=== PATIENT | female | born 1945 | race Two or more races ===

== ENCOUNTER 2019-06-21 09:45 | Emergency (ER) | payer OTHER ==
[~2019-06-21] VITALS: Ht 157.5 cm; Wt 49.9 kg
== END 2019-06-21 16:13 | disposition home or self-care (01) ==
LOC: ER 09:45
DX: S43.085A Other dislocation of left shoulder joint, initial encounter (principal); X50.0XXA Overexertion from strenuous movement or load, initial encounter; Y93.89 Activity, other specified; Y92.098 Other place in other non-institutional residence as the place of occurrence of the external cause; Y99.8 Other external cause status

== ENCOUNTER 2021-08-23 10:00 | Outpatient (CLI) | payer OTHER | END 2021-08-23 10:15 | disposition home or self-care (01) | LOC: PPH VACUNA 10:00 | PROVIDERS: ATTEND Emergency Medicine Pediatric Emergency Medicine | DX: Z23 Encounter for immunization (principal) ==

== ENCOUNTER → 2021-09-28 07:09 | Outpatient (CLI) | payer OTHER ==
[~2021-09-28 07:09] MED LIST: COLACE100 MG PO; ULTRACET PO
== END | disposition home or self-care (01) ==
LOC: LAB 07:09
PROVIDERS: ATTEND Surgery
DX: K62.5 Hemorrhage of anus and rectum (principal); C21.1 Malignant neoplasm of anal canal; R59.0 Localized enlarged lymph nodes; K62.89 Other specified diseases of anus and rectum; K64.4 Residual hemorrhoidal skin tags

== ENCOUNTER 2021-10-04 06:00 | Day surgery (SDC) | payer OTHER ==
[2021-10-04] MEDS ORDERED: ULTRACET PO (09:28)
[2021-10-04] MEDS ORDERED: COLACE100 MG PO (09:28)
== END 2021-10-04 16:25 | disposition home or self-care (01) ==
LOC: CIR.AMB 06:00 → EDSTATUS 07:00 → CIR.AMB 08:00
PROVIDERS: ATTEND Surgery
DX: C21.1 Malignant neoplasm of anal canal (principal); Z20.822 Contact with and (suspected) exposure to COVID-19

== ENCOUNTER 2021-10-23 09:45 | Outpatient (CLI) | payer OTHER | END 2021-10-23 10:14 | disposition home or self-care (01) | LOC: TOM 09:45 | PROVIDERS: ATTEND Surgery | DX: C21.1 Malignant neoplasm of anal canal (principal); R59.0 Localized enlarged lymph nodes; K62.5 Hemorrhage of anus and rectum; K62.89 Other specified diseases of anus and rectum; K64.4 Residual hemorrhoidal skin tags ==

== ENCOUNTER 2021-10-25 06:54 | Outpatient (CLI) | payer OTHER ==
[2021-10-25] MEDS ORDERED: ULTRACET PO (13:11)
== END 2021-10-25 07:15 | disposition home or self-care (01) ==
LOC: MRI 06:54
PROVIDERS: ATTEND Internal Medicine
DX: C21.1 Malignant neoplasm of anal canal (principal)
CPT/HCPCS: 72197

== ENCOUNTER 2021-10-25 10:43 | Day surgery (SDC) | payer OTHER ==
[2021-10-25] MEDS ORDERED: ULTRACET PO (13:11)
== END 2021-10-25 17:35 | disposition home or self-care (01) ==
LOC: CIR.AMB 10:43
PROVIDERS: ATTEND Surgery
DX: C21.1 Malignant neoplasm of anal canal (principal); Z20.822 Contact with and (suspected) exposure to COVID-19
CPT/HCPCS: 36561; C1751

== ENCOUNTER 2021-11-27 07:09 | Outpatient (CLI) | payer OTHER | END 2021-11-27 07:16 | disposition home or self-care (01) | LOC: LAB 07:09 | PROVIDERS: ATTEND Internal Medicine | DX: D50.0 Iron deficiency anemia secondary to blood loss (chronic) (principal); C21.1 Malignant neoplasm of anal canal ==

== ENCOUNTER 2022-01-04 09:29 | Outpatient (CLI) | payer OTHER | END 2022-01-04 09:32 | disposition home or self-care (01) | LOC: LAB 09:29 | PROVIDERS: ATTEND Internal Medicine | DX: C21.1 Malignant neoplasm of anal canal (principal); C77.4 Secondary and unspecified malignant neoplasm of inguinal and lower limb lymph nodes; L58.9 Radiodermatitis, unspecified ==

== ENCOUNTER 2022-01-16 16:38 | Emergency (ER) | payer OTHER ==
[~2022-01-16] VITALS: Ht 152.4 cm; Wt 36.3 kg
[2022-01-16] MEDS ORDERED: PERCOCET 10-321 EACH (17:19)
[2022-01-17] MEDS ORDERED: KLOR-CON M1010 MEQ PO (17:12)
[2022-01-17] MEDS ORDERED: INTESTINEX680 M1 PO (17:12)
[2022-01-17] MEDS ORDERED: PERCOCET 5-3251 EACH PO (17:26)
== END 2022-01-17 18:17 | disposition home or self-care (01) ==
LOC: ER 16:38
DX: E86.0 Dehydration (principal); R19.7 Diarrhea, unspecified

== ENCOUNTER 2022-03-04 08:00 | Outpatient (CLI) | payer OTHER ==
[~2022-03-04 08:00] MED LIST changes: +INTESTINEX680 M1 PO; +KLOR-CON M1010 MEQ PO; +PERCOCET 10-321 EACH; +PERCOCET 5-3251 EACH PO
== END 2022-03-04 08:30 | disposition home or self-care (01) ==
LOC: PPH VACUNA 08:00
PROVIDERS: ATTEND Emergency Medicine Pediatric Emergency Medicine
DX: Z23 Encounter for immunization (principal)

== ENCOUNTER 2022-03-14 06:47 | Outpatient (CLI) | payer OTHER | END 2022-03-14 06:53 | disposition home or self-care (01) | LOC: LAB 06:47 | PROVIDERS: ATTEND Surgery | DX: C21.1 Malignant neoplasm of anal canal (principal); R59.0 Localized enlarged lymph nodes; K62.5 Hemorrhage of anus and rectum; K62.89 Other specified diseases of anus and rectum; K64.4 Residual hemorrhoidal skin tags; Z03.818 Encounter for observation for suspected exposure to other biological agents ruled out ==

== ENCOUNTER → 2022-04-16 | Outpatient (CLI) | payer OTHER | END | disposition home or self-care (01) | LOC: NUCLEAR 04-15 07:00 | PROVIDERS: ATTEND Surgery | DX: C21.1 Malignant neoplasm of anal canal (principal) | CPT/HCPCS: 78812; A9552 ==

== ENCOUNTER 2022-04-18 08:22 | Outpatient (CLI) | payer OTHER | END 2022-04-18 08:28 | disposition home or self-care (01) | LOC: LAB 08:22 | DX: C21.1 Malignant neoplasm of anal canal (principal); R79.1 Abnormal coagulation profile ==

== ENCOUNTER 2022-07-10 06:34 | Outpatient (CLI) | payer OTHER | END 2022-07-10 06:45 | disposition home or self-care (01) | LOC: LAB 06:34 | PROVIDERS: ATTEND Internal Medicine | DX: C21.1 Malignant neoplasm of anal canal (principal); R79.1 Abnormal coagulation profile ==

== ENCOUNTER 2022-10-17 06:36 | Outpatient (CLI) | payer OTHER | END 2022-10-17 06:37 | disposition home or self-care (01) | LOC: LAB 06:36 | PROVIDERS: ATTEND Internal Medicine | DX: C20 Malignant neoplasm of rectum (principal) ==

== ENCOUNTER 2022-11-03 12:29 | Emergency (ER) | payer OTHER ==
[~2022-11-03] VITALS: Ht 152.4 cm; Wt 42.6 kg
[2022-11-03] MEDS ORDERED: DICLOFENAC SODI75 MG PO (18:07)
== END 2022-11-03 18:21 | disposition home or self-care (01) ==
LOC: ER 12:29
DX: M77.9 Enthesopathy, unspecified (principal); M25.552 Pain in left hip